=== PATIENT | female | born 1975 | race Caucasian/White ===

== ENCOUNTER 2021-08-22 08:14 | Emergency (ER) | payer OTHER, SELFPAY ==
--- NOTE | ~2021-08-22 | XR_ITS ---
EXAMINATION: XR hand LT min 3V DATE: 08/22/2021 08:38 INDICATION: Left hand injury. TECHNIQUE: 3 views of left hand were obtained. COMPARISON: None. FINDINGS: Bone alignment is normal. No fracture. There is mild osteoarthritis of first and fifth meta carpophalangeal joints and second distal interphalangeal joint. IMPRESSION: 1. Mild polyarticular osteoarthritis. Reviewed, dictated and finalized at location A. 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
[2021-08-22 08:25] VITALS: BP 102/67; PULSE 63; RESP 16; TEMP 36.4; O2SAT 100
--- NOTE | 2021-08-22 08:49 | ED.UPPEXIN ---
HPI - Extremity Injury (Upper) General Chief Complaint: Extremity Injury, Upper Stated Complaint: Left hand Pain Time Seen by Provider: 08/22/21 08:45 Source: patient Mode of arrival: ambulatory Limitations: no limitations History of Present Illness HPI narrative: Jonnathan is a 45-year-old female patient [facility]. Patient states that yesterday she was lifting plywood one of the plywood moved and she picked up all the way on her thumb. Patient states after the injury she felt no pain she cut her son's hair clean her kitchen did several other things about 2 AM she woke up with pain and swelling to her left thumb and hand. Patient has full range of motion full sensation. Patient put a wrist brace on with some relief. MD complaint: injury to: left Related Data Allergies Allergy/AdvReac Type Severity Reaction Status Date / Time No Known Allergies Allergy Verified 08/22/21 08:23 Review of Systems Review of Systems: CONSTITUTIONAL: Denies body aches, fever, chills, or sweats. EYES: Denies visual changes, redness, or discharge. ENT: Denies rhinorrhea, congestion, sore throat, or otalgia. CARDIOVASCULAR: Denies chest pain, palpitations, or edema. RESPIRATORY: Denies cough or dyspnea. GASTROINTESTINAL: Denies abdominal pain, nausea, vomiting, or diarrhea. GENITOURINARY: Denies dysuria or hematuria. SKIN: Denies rash, itching, or wounds. MUSCULOSKELETAL: Denies back pain,+ left hand pain or myalgia. NEUROLOGIC: Denies headache, numbness, tingling, or weakness. PSYCH: Denies depression or anxiety. All systems reviewed & are unremarkable except as noted in HPI and below PMFSH Comments At time of signature, I have reviewed and agree with nursing past medical, surgical, social and family history unless otherwise noted. Please see nursing chart for further information. There is no relevant family history pertinent to the presenting complaint Exam Narrative: GENERAL: Well-appearing, well-nourished, and in no acute distress. HEAD: Normocephalic, atraumatic. EYES: EOMI. No redness or drainage. Conjunctivae normal. ENT: Mucous membranes pink and moist. Nares clear. No rhinorrhea. TMs normal bilaterally. Throat normal. Uvula midline. NECK: Normal AROM. Supple. No lymphadenopathy. CHEST: No respiratory distress. Clear to auscultation. HEART: Regular rate and rhythm. No murmur appreciated. Normal peripheral pulses. ABDOMEN: Soft, nontender, nondistended, normal active bowel sounds. MUSCULOSKELETAL: No bony tenderness. EXTREMITIES: Normal range of motion. No edema. left wrist with full range of motion, distal sensation and movment intact, no edema noted to left hand or thumb, SKIN: Warm, dry, no rash. Capillary refill normal. Normal skin turgor. NEURO: No focal deficits. Alert and oriented x3. Gait steady. PSYCH: Normal affect. No signs of depression or anxiety. Course Course Emergency Course: Patient's left hand was x-rayed. Left hand x-ray was negative. Patient was explained that is probably a strain anti-inflammatories for 7 days and wrist brace as needed. Patient was educated to follow-up with her primary care physician for any further concerns or pain after the next 7 days Vital Signs Vital signs: Vital Signs Temperature 36.4 C 08/22/21 08:25 Pulse Rate 63 08/22/21 08:25 Respiratory Rate 16 08/22/21 08:25 Blood Pressure 102/67 08/22/21 08:25 Pulse Oximetry 100 08/22/21 08:25 Temperature 36.4 C 08/22/21 08:25 Pulse Rate 63 08/22/21 08:25 Respiratory Rate 16 08/22/21 08:25 Blood Pressure 102/67 08/22/21 08:25 Pulse Oximetry 100 08/22/21 08:25 Reviewed MDM - Extremity Injury (Upper) MDM Narrative Medical decision making narrative: Hand X-Ray 08/22/21 08:44 IMPRESSION: 1. Mild polyarticular osteoarthritis. X-ray was negative patient will be treated for sprain patient will continue to wear her wrist brace and take Aleve twice daily for the next 7 days and follow
== END 2021-08-22 09:00 | disposition home or self-care (01) ==
PROVIDERS: Emergency Provider Nurse Practitioner Family
DX: S63.502A Unspecified sprain of left wrist, initial encounter (principal); S66.912A Strain of unspecified muscle, fascia and tendon at wrist and hand level, left hand, initial encounter; X58.XXXA Exposure to other specified factors, initial encounter
CPT/HCPCS: 73130; 99213; G0463

== ENCOUNTER → 2021-10-29 02:18 | Outpatient (CLI) | payer OTHER, SELFPAY ==
[2021-10-29 21:12] LABS: SARS-CoV-2 RNA PCR Negative
== END ==
PROVIDERS: PCP Nurse Practitioner Family; Visit Provider Nurse Practitioner Family
DX: R05.9 Cough, unspecified (principal); Z20.822 Contact with and (suspected) exposure to COVID-19
CPT/HCPCS: C9803; U0003; U0005